=== PATIENT | male | born 1950 | race Caucasian/White ===

== ENCOUNTER 2022-05-02 14:57 | Observation (INO) | payer BC, OTHER ==
[2022-05-02 18:08] LABS: BASO % 1.4 % (0-2.0); EOS % 3.8 % (0-4.5); HEMATOCRIT 43.7 % (35.4-49); HEMOGLOBIN 14.4 GM/dL (11.7-16.9); LYMPH % 10.6 % (8-40); MCH 28.3 pg (25.7-33.7); MCHC 32.9 g/dl (32.0-35.9); MEAN CELL VOLUME 86.1 fl (80-96); MEAN PLT VOLUME 8.8 fl (7.5-11.1); NEUT % 74.2 % (42.8-82.8); PLATELET COUNT 181 10^3/uL (134-434); RBC 5.08 M/mm3 (4.00-5.60); RDW 13.8 % (11.9-15.9)
[2022-05-02 18:12] LABS: CALCIUM 8.9 mg/dL (8.5-10.1)
[2022-05-02 18:13] LABS: BLOOD UREA NITROGEN 18.8 mg/dL (7-18)
[2022-05-02 18:16] LABS: CREATININE 0.5 mg/dL (0.55-1.3)
[2022-05-02 19:09] LABS: EPI CELLS 4 /uL (0-25.1); HYALINE CASTS 0 /uL (0-3.1); PH,URINE 6.5 (5.0-8.0); URINE APPEARANCE CLEAR; URINE BACTERIA 14 /uL (0-1359); URINE BILIRUBIN NEGATIVE (NEGATIVE); URINE COLOR DK YELLOW; URINE GLUCOSE (UA) NEGATIVE (NEGATIVE); URINE KETONE 3+ (NEGATIVE); URINE LEUK ESTERASE TRACE (NEGATIVE); URINE NITRITE NEGATIVE (NEGATIVE); URINE PROTEIN TRACE (NEGATIVE); URINE RBC 5 /uL (0-23.9); URINE WBC 6 /uL (0-25.8)
[2022-05-03 04:38] VITALS: BMI 22.1
[2022-05-03 08:48] LABS: HEMATOCRIT 40.9 % (35.4-49); HEMOGLOBIN 13.5 GM/dL (11.7-16.9); MCH 28.4 pg (25.7-33.7); MCHC 33.1 g/dl (32.0-35.9); MEAN CELL VOLUME 85.9 fl (80-96); MEAN PLT VOLUME 8.5 fl (7.5-11.1); PLATELET COUNT 166 10^3/uL (134-434); RBC 4.76 M/mm3 (4.00-5.60); RDW 13.8 % (11.9-15.9); WHITE BLOOD COUNT 4.9 K/mm3 (4.0-10.0)
[2022-05-03 08:55] LABS: CALCIUM 8.7 mg/dL (8.5-10.1)
[2022-05-03 08:56] LABS: ALBUMIN 3.4 g/dl (3.4-5.0); BLOOD UREA NITROGEN 20.1 mg/dL (7-18); MAGNESIUM 2.2 mg/dL (1.8-2.4)
[2022-05-03 08:59] LABS: CREATININE 0.4 mg/dL (0.55-1.3); PHOSPHOROUS 3.1 mg/dL (2.5-4.9)
[2022-05-03 09:00] LABS: BILIRUBIN,TOTAL 1.1 mg/dL (0.2-1); TOT PROT 5.9 g/dl (6.4-8.2)
[2022-05-03] MEDS: POLYETHYLENE GLYCOL (HEALTHYLAX) 3350 17 GM PACKET PO SCH ×2 (09:46→21:28)
[2022-05-03] MEDS: ENOXAPARIN NA (PORCINE) 40 MG/0.4 ML DISP.SYRIN SQ SCH (09:46)
[2022-05-03] MEDS ORDERED: TAMSULOSIN HCL 0.4 MG CAP PO ONE (14:42)
[2022-05-04] MEDS: TAMSULOSIN HCL 0.4 MG CAP PO SCH (08:16)
[2022-05-04] MEDS: ENOXAPARIN NA (PORCINE) 40 MG/0.4 ML DISP.SYRIN SQ SCH (09:18)
[2022-05-04] MEDS: POLYETHYLENE GLYCOL (HEALTHYLAX) 3350 17 GM PACKET PO SCH ×2 (09:18→21:34)
[2022-05-04 15:02] VITALS: RESP 18
[2022-05-05] MEDS: TAMSULOSIN HCL 0.4 MG CAP PO SCH (08:09)
[2022-05-05] MEDS: ENOXAPARIN NA (PORCINE) 40 MG/0.4 ML DISP.SYRIN SQ SCH (09:20)
[2022-05-05] MEDS: POLYETHYLENE GLYCOL (HEALTHYLAX) 3350 17 GM PACKET PO SCH ×2 (09:20→21:33)
[2022-05-05] MEDS: ASPIRIN 81 MG CHEWABLE TABLETS PO SCH (14:20)
[2022-05-05] MEDS: ESCITALOPRAM OXALATE 20 MG TABLET PO SCH (14:20)
[2022-05-06] MEDS: TAMSULOSIN HCL 0.4 MG CAP PO SCH (08:02)
[2022-05-06] MEDS: ASPIRIN 81 MG CHEWABLE TABLETS PO SCH (10:04)
[2022-05-06] MEDS: ENOXAPARIN NA (PORCINE) 40 MG/0.4 ML DISP.SYRIN SQ SCH (10:04)
[2022-05-06] MEDS: ESCITALOPRAM OXALATE 20 MG TABLET PO SCH (10:04)
[2022-05-06] MEDS: POLYETHYLENE GLYCOL (HEALTHYLAX) 3350 17 GM PACKET PO SCH ×2 (10:04→21:03)
[2022-05-07] MEDS: TAMSULOSIN HCL 0.4 MG CAP PO SCH (09:54)
[2022-05-07] MEDS: ENOXAPARIN NA (PORCINE) 40 MG/0.4 ML DISP.SYRIN SQ SCH (10:04)
[2022-05-07] MEDS: ASPIRIN 81 MG CHEWABLE TABLETS PO SCH (10:04)
[2022-05-07] MEDS: POLYETHYLENE GLYCOL (HEALTHYLAX) 3350 17 GM PACKET PO SCH (10:04)
[2022-05-07] MEDS: ESCITALOPRAM OXALATE 20 MG TABLET PO SCH (10:04)
[2022-05-07] MEDS ORDERED: SODIUM PHOSPHATE/NA BIPHOS 133 ML ENEMA RC ONE (13:38)
[2022-05-07 15:44] VITALS: BP 100/72; PULSE 80; TEMP 98.2
== END 2022-05-07 18:02 ==
LOC: JER 14:57 → JERBED 18:35 → J5S 05-03 00:27
PROVIDERS: ADMIT Internal Medicine; ATTEND Internal Medicine
PROC: 3E023GC Introduction of Other Therapeutic Substance into Muscle, Percutaneous Approach (ICD-10-PCS; principal; 2022-05-02)
DX: G71.02 Facioscapulohumeral muscular dystrophy (principal); N40.0 Benign prostatic hyperplasia without lower urinary tract symptoms; R26.9 Unspecified abnormalities of gait and mobility; G62.9 Polyneuropathy, unspecified; I25.2 Old myocardial infarction; Z29.8 Encounter for other specified prophylactic measures
CPT/HCPCS: 36415; 80048; 80053; 81003; 83735; 84100; 84484; 85025; 85027; 87086; 93005; 93010; 95860-TC; 97162-GP; 99285-25; C9803-CS; G0378; U0003; U0005